=== PATIENT | male | born 1965 | race Caucasian/White ===

== ENCOUNTER 2019-07-02 02:04 | Emergency (ER) | payer OTHER ==
[~2019-07-02] VITALS: Ht 175.3 cm; Wt 68.0 kg
[2019-07-02 05:49] LABS: HEMOGLOBIN 15.3 gm/dL (14.0-18.0); MCH 32.1 pg (26.0-34.0); MCHC 34.1 g/dL (28.0-37.0); MCV 94.1 fL (80.0-100.0); MPV 8.1 fl. (7.2-11.1); NUCLEATED RBCS 0 /100WBC; PLATELET COUNT* 203 thou/uL (150-400); RBC 4.78 mil/uL (4.50-6.00); WBC 16.3 thou/uL (4.0-11.0)
[2019-07-02 05:57] LABS: CALCIUM 8.4 mg/dL (8.5-10.1); POTASSIUM 4.1 mmol/L (3.5-5.1)
[2019-07-02 05:59] LABS: PROTIME 10.3 Seconds (9.20-11.50)
[2019-07-02 06:02] LABS: TOTAL BILIRUBIN 1.1 mg/dL (<0.1-1.0)
[2019-07-02 06:20] LABS: ABSOLUTE LYMPHOCYTES 1.1 thou/uL (0.8-5.3); ABSOLUTE MONOCYTES 0.7 thou/uL (0.0-1.2); ABSOLUTE NEUTROPHILS 14.5 thou/uL (1.6-8.1); PLATELET ESTIMATE ADEQUATE
[2019-07-02 06:21] LABS: TOXIC GRANULATION 1+
[2019-07-02 06:47] VITALS: BP 136/82
== END 2019-07-02 06:30 | disposition short-term general hospital (02) ==
LOC: M.ERS 02:04
PROVIDERS: Emergency Medicine
DX: S02.82XA Fracture of other specified skull and facial bones, left side, initial encounter for closed fracture (principal); S01.81XA Laceration without foreign body of other part of head, initial encounter; Y04.2XXA Assault by strike against or bumped into by another person, initial encounter; Y93.89 Activity, other specified; Y92.89 Other specified places as the place of occurrence of the external cause; Y99.8 Other external cause status